=== PATIENT | female | born 1990 | race Caucasian/White ===

== ENCOUNTER → 2019-06-16 | Outpatient (CLI) | payer OTHER ==
--- NOTE | 2019-06-16 15:10 | Diagnostic Imaging Report ---
PROCEDURE: CT abdomen without contrast. TECHNIQUE: Multiple contiguous axial images were obtained through the abdomen without the use of intravenous contrast. Auto Exposure Controls were utilized during the CT exam to meet ALARA standards for radiation dose reduction. INDICATION: Evaluate hernia. COMPARISON: No prior studies are available for comparison. FINDINGS: Lung bases are clear. The liver and gallbladder are unremarkable. No biliary duct dilatation is seen. Pancreas and spleen are unremarkable. No adrenal mass is detected. Kidneys are without calculi or hydronephrosis. Aorta is non-aneurysmal. There is a small fat-containing umbilical hernia. No other abdominal wall hernia is seen. No herniated bowel loops are identified. Bowel loops are normal caliber. There is no obstruction. There is no free fluid. IMPRESSION: Small fat-containing umbilical hernia. Dictated by: Dictated on workstation # [id number]
== END ==
LOC: RAD 14:26
PROVIDERS: ATTEND Registered Nurse
DX: K42.9 Umbilical hernia without obstruction or gangrene (principal)
CPT/HCPCS: 74150

== ENCOUNTER 2020-08-28 15:05 | Emergency (ER) | payer SELFPAY ==
[~2020-08-28] VITALS: Ht 157.5 cm; Wt 136.1 kg
[2020-08-28 15:34] LABS: BASOPHILS # (AUTO) 0.1 10^3/uL (0.0-0.1); BASOPHILS % (AUTO) 1 % (0-10); EOSINOPHILS # (AUTO) 0.6 10^3/uL (0.0-0.3); EOSINOPHILS % (AUTO) 4 % (0-10); HEMATOCRIT 47 % (35-52); HEMOGLOBIN 15.6 g/dL (11.5-16.0); LYMPHOCYTES # (AUTO) 3.2 10^3/uL (1.0-4.0); LYMPHOCYTES % (AUTO) 24 % (12-44); MEAN CORPUSCULAR HEMOGLOBIN 29 pg (25-34); MEAN CORPUSCULAR HGB CONC 33 g/dL (32-36); MEAN CORPUSCULAR VOLUME 87 fL (80-99); MEAN PLATELET VOLUME 11.2 fL (9.0-12.2); MONOCYTES # (AUTO) 0.6 10^3/uL (0.0-1.0); MONOCYTES % (AUTO) 4 % (0-12); NEUTROPHILS % (AUTO) 66 % (42-75); PLATELET COUNT 225 10^3/uL (130-400); WHITE BLOOD COUNT 13.5 10^3/uL (4.3-11.0)
[2020-08-28 15:39] LABS: INR 0.9 (0.8-1.4); PROTHROMBIN TIME PATIENT 12.5 SEC (12.2-14.7)
[2020-08-28] MEDS ORDERED: LIDOCAINE 2% VISCOUS 15 ML UDC PO ONE (15:45)
[2020-08-28] MEDS ORDERED: ANTACID SUSP 30 ML UDC (MYLANTA) PO ONE (15:45)
[2020-08-28 15:50] LABS: ALANINE AMINOTRANSFERASE 38 U/L (0-55); ALBUMIN 3.9 GM/DL (3.2-4.5); ALKALINE PHOSPHATASE 62 U/L (40-136); BILIRUBIN,TOTAL 0.4 MG/DL (0.1-1.0); BUN/CREATININE RATIO 10; CALCIUM 8.7 MG/DL (8.5-10.1); CARBON DIOXIDE 25 MMOL/L (21-32); CHLORIDE 96 MMOL/L (98-107); CREATININE SERUM 0.69 MG/DL (0.60-1.30); GFR ESTIMATED > 60; GLUCOSE 322 MG/DL (70-105); MAGNESIUM 1.6 MG/DL (1.6-2.4); POTASSIUM 4.1 MMOL/L (3.6-5.0); SODIUM 136 MMOL/L (135-145); TOTAL PROTEIN 7.3 GM/DL (6.4-8.2)
--- NOTE | 2020-08-28 16:04 | ED Chest Pain ---
General Chief Complaint: Chest Pain Stated Complaint: CP Nursing Triage Note: PT ARRIVED BY PRIVATE VEHICLE WITH CHIEF COMPLAINT OF CHEST PAIN. PT STATED ONSET WAS 20 MINUTES PRIOR TO ARRIVAL. PT STATED THAT SHE WAS WALKING OUTSIDE AFTER LUNCH TO GET SOME BREEZE. WHEN SHE WENT INSIDE SHE STARTED TO HAVE CHEST PAIN. PT WAS ALERT, ORIENTED X 4 AND AMBULATORY. PT STATED THAT SHE HAS RIGHT SHOULDER PAIN WITH NUMBNESS AND FEELS LIKE "A FAT PERSON" IS SITTING ON HER CHEST. PT HAS HAD 2 C-SECTIONS AND HAS HISTORY OF ASTHMA. VITALS WERE DONE ON ARRIVAL, PT WAS HOOKED TO [employer], EKG, IV START (20 GAUGE LAC) WITH BLOOD DRAW WERE COMPLETED. REPORT WAS GIVEN TO PROVIDER. Nursing Sepsis Screen: No Definite Risk Source: patient Exam Limitations: no limitations History of Present Illness Date Seen by Provider: Aug 28, 2020 Time Seen by Provider: 15:20 Initial Comments If she isTo ER by private vehicle with reports of chest pain. Otherwise healthy she states no. I asked her to elaborate and she states that she has asthma and she also states "I am the status person on the face of the fucking earth". She has no cardiac history. She does not feel this is her asthma. She does have acid reflux. Timing/Duration: changing over time Severity/Quality: moderate Location: central Radiation: no radiation Activities at Onset: none ASA po CHEESE COOK: No NTG SL CHEESE COOK: No Associated Symptoms: shortness of breath Allergies and Home Medications Allergies Coded Allergies: No Known Drug Allergies (Unverified , 08/28/20) Patient Home Medication List Home Medication List Reviewed: Yes Review of Systems Review of Systems Constitutional: see HPI EENTM: No Symptoms Reported Respiratory: No Symptoms Reported Cardiovascular: See HPI, Chest Pain Gastrointestinal: No Symptoms Reported Genitourinary: No Symptoms Reported Musculoskeletal: no symptoms reported Skin: no symptoms reported Psychiatric/Neurological: No Symptoms Reported Endocrine: No Symptoms Reported Past Oqempxr-Hadacl-Wsvoax Hx Patient Social History Alcohol Use: Denies Use Smoking Status: Current Everyday Smoker 2nd Hand Smoke Exposure: Yes Recent Infectious Disease Expo: No Recent Hopitalizations: No Seasonal Allergies Seasonal Allergies: No Past Medical History Surgeries: Yes Section Respiratory: No Cardiac: No Neurological: No Genitourinary: No Gastrointestinal: No Musculoskeletal: No Endocrine: No HEENT: No Cancer: No Psychosocial: No Integumentary: No Physical Exam Vital Signs Vital Signs - First Documented 08/28/20 15:07 Temp 36.6 Pulse 109 Resp 22 B/P (MAP) 167/112 (130) Pulse Ox 93 O2 Delivery Room Air Capillary Refill : Less Than 3 Seconds Height, Weight, BMI Height: '" Weight: lbs. oz. kg; 54.00 BMI Method: General Appearance: No Apparent Distress, WD/WN, Obese, Other (Flat affect) Neck: Full Range of Motion, Normal Inspection Respiratory: Lungs Clear, Normal Breath Sounds, No Accessory Muscle Use, No Respiratory Distress Cardiovascular: Regular Rate, Rhythm, Normal Peripheral Pulses Gastrointestinal: Normal Bowel Sounds, Non Tender, Soft Extremity: Normal Capillary Refill, Normal Inspection Neurologic/Psychiatric: Alert, Oriented x3 Skin: Normal Color, Warm/Dry Progress/Results/Core Measures Results/Orders Lab Results Laboratory Tests Test 08/28/20 15:17 Range/Units White Blood Count 13.5 H 4.3-11.0 10^3/uL Red Blood Count 5.45 H 3.80-5.11 10^6/uL Hemoglobin 15.6 11.5-16.0 g/dL Hematocrit 47 35-52 % Mean Corpuscular Volume 87 80-99 fL Mean Corpuscular Hemoglobin 29 25-34 pg Mean Corpuscular Hemoglobin Concent 33 32-36 g/dL Red Cell Distribution Width 13.9 10.0-14.5 % Platelet Count 225 130-400 10^3/uL Mean Platelet Volume 11.2 9.0-12.2 fL Immature Granulocyte % (Auto) 1 % Neutrophils (%) (Auto) 66 42-75 % Lymphocytes (%) (Auto) 24 12-44 % Monocytes (%) (Auto) 4 0-12 % Eosinophils (%) (Auto) 4 0-10 % Basophils (%) (Auto) 1 0-10 % Neutrophils # (Auto) 9.0 H 1.8-7.8 10^3/uL Lymphocytes # (Auto) 3.2 1.0-4.0 10^3/uL Monocytes # (Auto) 0.6 0.0-1.0 10^3/uL Eosinophils # (Auto) 0.6 H 0.0-0.3 10^3/uL Basophils # (Auto) 0.1 0.0-0.1 10^3/uL Immature Granulocyte # (Auto) 0.2 H 0.0-0.1 10^3/uL Prothrombin Time 12.5 12.2-14.7 SEC INR Comment 0.9 0.8-1.4 Activated Partial Thromboplast Time 26 24-35 SEC D-Dimer 0.30 0.00-0.49 UG/ML Sodium Level 136 135-145 MMOL/L Potassium Level 4.1 3.6-5.0 MMOL/L Chloride Level 96 L 98-107 MMOL/L Carbon Dioxide Level 25 21-32 MMOL/L Anion Gap 15 H 5-14 MMOL/L Blood Urea Nitrogen 7 7-18 MG/DL Creatinine 0.69 0.60-1.30 MG/DL Estimat Glomerular Filtration Rate > 60 BUN/Creatinine Ratio 10 Glucose Level 322 H 70-105 MG/DL Calcium Level 8.7 8.5-10.1 MG/DL Corrected Calcium 8.8 8.5-10.1 MG/DL Magnesium Level 1.6 1.6-2.4 MG/DL Total Bilirubin 0.4 0.1-1.0 MG/DL Aspartate Amino Transf (AST/SGOT) 26 5-34 U/L Alanine Aminotransferase (ALT/SGPT) 38 0-55 U/L Alkaline Phosphatase 62 40-136 U/L Myoglobin 17.8 10.0-92.0 NG/ML Troponin I 0.028 <0.028 NG/ML B-Type Natriuretic Peptide < 10.0 <100.0 PG/ML Total Protein 7.3 6.4-8.2 GM/DL Albumin 3.9 3.2-4.5 GM/DL Serum Test, Qualitative NEGATIVE NEGATIVE My Orders Orders - KAYLA FLORES APRN Cbc With Automated Diff (08/28/20 15:21) Magnesium (08/28/20 15:21) Chest 1 View, Ap/Pa Only (08/28/20 15:21) Ekg Tracing (08/28/20 15:21) Comprehensive Metabolic Panel (08/28/20 15:21) Myoglobin Serum (08/28/20 15:21) Protime With Inr (08/28/20 15:21) Partial Thromboplastin Time (08/28/20 15:21) O2 (08/28/20 15:21) Monitor-Rhythm Ecg Trace Only (08/28/20 15:21) Lipid Panel (08/29/20 06:00) Ed Iv/Invasive Line Start (08/28/20 15:21) BNP (08/28/20 15:21) Fibrin Degradation Products (08/28/20 15:21) Troponin I (08/28/20 15:21) Hcg,Qualitative Serum (08/28/20 15:31) Antacid Suspension (Mylanta Suspension (08/28/20 15:45) Lidocaine 2% Viscous 15 Ml (Xylocaine Vi (08/28/20 15:45) Medications Given in ED Current Medications Medications Dose Ordered Sig/Beronica Route Start Time Stop Time Status Last Admin Dose Admin Al Hydrox/Mg Hydrox/Simethicone 30 ml ONCE ONCE PO 08/28/20 15:45 08/28/20 15:46 DC 08/28/20 15:39 30 ML Lidocaine HCl 10 ml ONCE ONCE PO 08/28/20 15:45 08/28/20 15:46 DC 08/28/20 15:39 10 ML Vital Signs/I&O 08/28/20 08/28/20 15:07 15:22 Temp 36.6 Pulse 109 Resp 22 B/P (MAP) 167/112 (130) Pulse Ox 93 O2 Delivery Room Air Room Air Blood Pressure Mean: 130 Departure Communication (Admissions) 1688-pain is completely resolved after GI cocktail. We will discharged home. She has been rather flat throughout her stay as far as affect goes. Combined with her comments about her weight, she may benefit from some additional antidepressants. Wellbutrin might be a good choice for her. I did discuss with her and potential for weight loss as a side effect and she states "well rebekah, why am I on that already?". She would like to try a prescription for this. Impression Primary Impression: Chest pain Disposition: HOME, SELF-CARE Condition: Stable Departure-Patient Inst. Decision time for Depature: 16:33 Referrals: NO,LOCAL PHYSICIAN (PCP/Family) Primary Care Physician Patient Instructions: Acid Reflux and GERD in Adults (DC) Add. Discharge Instructions: 1. Return to ER for any concerns. Start the new medication as directed. Follow-up with your primary healthcare provider this week for recheck. All discharge instructions reviewed with patient and/or family. Voiced understanding. Scripts Bupropion HCl (Wellbutrin Xl) 150 Mg Tab.er.24h 150 MG PO DAILY for Smoking Cessation, #30 TAB Prov: KAYLA FLORES APRN 08/28/20 KAYLA FLORES APRN Aug 28, 2020 16:04
[2020-08-28] MEDS ORDERED: BUPR-42 PO (16:37)
[2020-08-28 16:46] VITALS: BP 170/108
--- NOTE | 2020-08-28 16:47 | Diagnostic Imaging Report ---
EXAMINATION: Chest 1 view. HISTORY: Chest pain. COMPARISON: None available. FINDINGS: The lungs are clear without edema or pneumonia. No pleural effusion or pneumothorax. Heart size is normal. IMPRESSION: Clear lungs. Dictated by: Dictated on workstation # [id number]
== END 2020-08-28 16:46 | disposition home or self-care (01) ==
LOC: ER 15:05
DX: R07.9 Chest pain, unspecified (principal); J45.909 Unspecified asthma, uncomplicated; Z77.22 Contact with and (suspected) exposure to environmental tobacco smoke (acute) (chronic); Z32.02 Encounter for pregnancy test, result negative
CPT/HCPCS: 36415; 71045; 80053; 83735; 83874; 83880; 84484; 84703; 85025; 85379; 85610; 85730; 93005; 93041

== ENCOUNTER 2020-08-30 15:00 | Emergency (ER) | payer SELFPAY ==
[~2020-08-30] VITALS: Ht 157.5 cm; Wt 144.2 kg
[~2020-08-30 15:00] MED LIST: BUPR-42 PO
[2020-08-30] MEDS ORDERED: PROMETHAZINE INJ 25 MG/ML (PHENERGAN) AMP IVP ONE ×2 (15:15)
[2020-08-30] MEDS ORDERED: NS IV 1000 ML 1,000 ML IV SCH ×2 (15:15)
--- NOTE | 2020-08-30 15:17 | ED General ---
General Chief Complaint: General Problems/Pain Stated Complaint: DIZZINESS Nursing Triage Note: PT BROUGHT IN BY [facility] FROM [facility] WITH COMPLAINT OF DIZZINESS AND NAUSEA. Nursing Sepsis Screen: No Definite Risk Source of Information: Patient Exam Limitations: No Limitations History of Present Illness Date Seen by Provider: Aug 30, 2020 Time Seen by Provider: 15:02 Initial Comments To ER by EMS from [facility] with reports of dizziness and nausea without vomiting. I saw her a few days ago for chest pain, she was quite depressed and upset about her weight. I gave her a prescription for Wellbutrin but she states she has not yet filled that. She does have a history of dizziness. No headaches. Timing/Duration: 1-2 Days Severity: Moderate Associated Systoms: Denies Symptoms Allergies and Home Medications Allergies Coded Allergies: No Known Drug Allergies (Unverified , 08/28/20) Home Medications Bupropion HCl 150 Mg Tab.er.24h, 150 MG PO DAILY Prescribed by: KAYLA FLORES on 08/28/20 [id number] Patient Home Medication List Home Medication List Reviewed: Yes Review of Systems Review of Systems Constitutional: see HPI; No chills; dizziness; No fever EENTM: see HPI Respiratory: no symptoms reported Cardiovascular: no symptoms reported Gastrointestinal: nausea Genitourinary: no symptoms reported Musculoskeletal: no symptoms reported Skin: no symptoms reported Psychiatric/Neurological: No Symptoms Reported Hematologic/Lymphatic: No Symptoms Reported Past Zdvxbgy-Ultfph-Vjmgoz Hx Patient Social History Alcohol Use: Denies Use Smoking Status: Current Everyday Smoker 2nd Hand Smoke Exposure: Yes Recent Infectious Disease Expo: No Recent Hopitalizations: No Immunizations Up To Date Tetanus Booster (TDap): Unknown PED Vaccines UTD: Yes Seasonal Allergies Seasonal Allergies: No Past Medical History Surgeries: Yes Section Respiratory: No Cardiac: No Neurological: No Genitourinary: No Gastrointestinal: No Musculoskeletal: No Endocrine: Yes Diabetes, Non-Insulin dep HEENT: No Cancer: No Psychosocial: No Integumentary: No Physical Exam Vital Signs Vital Signs - First Documented 08/30/20 15:00 Temp 36.0 Pulse 104 Resp 16 B/P (MAP) 118/84 (95) Pulse Ox 95 O2 Delivery Room Air Capillary Refill : Less Than 3 Seconds Height, Weight, BMI Height: '" Weight: lbs. oz. kg; 58.00 BMI Method: General Appearance: No Apparent Distress, WD/WN, Obese, Other (Keeps her eyes closed, states that the nausea intensifies when she opens her eyes. Over the already know I did not) Eyes: Bilateral Eye Normal Inspection, Bilateral Eye PERRL, Bilateral Eye EOMI, Bilateral Eye Other HEENT: PERRL/EOMI, TMs Normal Neck: Full Range of Motion, Normal Inspection Respiratory: No Accessory Muscle Use, No Respiratory Distress Cardiovascular: Regular Rate, Rhythm, Normal Peripheral Pulses Gastrointestinal: Normal Bowel Sounds, Non Tender, Soft Extremity: Normal Capillary Refill, Normal Inspection Neurologic/Psychiatric: Alert, Oriented x3 Skin: Normal Color, Warm/Dry Progress/Results/Core Measures Suspected Sepsis Recent Fever Within 48 Hours: No Infection Criteria Present: None New/Unexplained Altered Menta: No Sepsis Screen: No Definite Risk SIRS Temperature: Pulse: 104 Respiratory Rate: 16 Laboratory Tests 08/30/20 15:20: White Blood Count 13.5H Blood Pressure 118 /84 Mean: 95 Laboratory Tests 08/30/20 15:20: Creatinine 0.66, Platelet Count 257, Total Bilirubin 0.6 Results/Orders Lab Results Laboratory Tests Test 08/30/20 15:20 08/30/20 17:11 Range/Units White Blood Count 13.5 H 4.3-11.0 10^3/uL Red Blood Count 5.90 H 3.80-5.11 10^6/uL Hemoglobin 16.8 H 11.5-16.0 g/dL Hematocrit 52 35-52 % Mean Corpuscular Volume 88 80-99 fL Mean Corpuscular Hemoglobin 29 25-34 pg Mean Corpuscular Hemoglobin Concent 32 32-36 g/dL Red Cell Distribution Width 13.8 10.0-14.5 % Platelet Count 257 130-400 10^3/uL Mean Platelet Volume 11.1 9.0-12.2 fL Immature Granulocyte % (Auto) 1 % Neutrophils (%) (Auto) 72 42-75 % Lymphocytes (%) (Auto) 19 12-44 % Monocytes (%) (Auto) 4 0-12 % Eosinophils (%) (Auto) 3 0-10 % Basophils (%) (Auto) 1 0-10 % Neutrophils # (Auto) 9.7 H 1.8-7.8 10^3/uL Lymphocytes # (Auto) 2.6 1.0-4.0 10^3/uL Monocytes # (Auto) 0.6 0.0-1.0 10^3/uL Eosinophils # (Auto) 0.4 H 0.0-0.3 10^3/uL Basophils # (Auto) 0.1 0.0-0.1 10^3/uL Immature Granulocyte # (Auto) 0.2 H 0.0-0.1 10^3/uL Sodium Level 135 135-145 MMOL/L Potassium Level 4.4 3.6-5.0 MMOL/L Chloride Level 96 L 98-107 MMOL/L Carbon Dioxide Level 27 21-32 MMOL/L Anion Gap 12 5-14 MMOL/L Blood Urea Nitrogen 11 7-18 MG/DL Creatinine 0.66 0.60-1.30 MG/DL Estimat Glomerular Filtration Rate > 60 BUN/Creatinine Ratio 17 Glucose Level 195 H 70-105 MG/DL Calcium Level 9.1 8.5-10.1 MG/DL Corrected Calcium 9.1 8.5-10.1 MG/DL Total Bilirubin 0.6 0.1-1.0 MG/DL Aspartate Amino Transf (AST/SGOT) 25 5-34 U/L Alanine Aminotransferase (ALT/SGPT) 35 0-55 U/L Alkaline Phosphatase 51 40-136 U/L Total Protein 7.5 6.4-8.2 GM/DL Albumin 4.0 3.2-4.5 GM/DL Serum Test, Qualitative NEGATIVE NEGATIVE Urine Color YELLOW Urine Clarity CLEAR Urine pH 6.0 5-9 Urine Specific [place] >=1.030 1.016-1.022 Urine Protein 3+ H NEGATIVE Urine Glucose (UA) NEGATIVE NEGATIVE Urine Ketones NEGATIVE NEGATIVE Urine Nitrite NEGATIVE NEGATIVE Urine Bilirubin NEGATIVE NEGATIVE Urine Urobilinogen 0.2 < = 1.0 MG/DL Urine Leukocyte Esterase NEGATIVE NEGATIVE Urine RBC (Auto) 1+ H NEGATIVE Urine RBC 2-5 H /HPF Urine WBC 2-5 /HPF Urine Squamous Epithelial Cells 25-50 H /HPF Urine Crystals NONE /LPF Urine Bacteria MODERATE H /HPF Urine Casts NONE /LPF Urine Mucus NEGATIVE /LPF Urine Trichomonas LARGE H /HPF Urine Culture Indicated NO My Orders Orders - KAYLA FLORES APRN Promethazine Injection (Phenergan Injec (08/30/20 15:15) Ns Iv 1000 Ml (Sodium Chloride 0.9%) (08/30/20 15:15) Cbc With Automated Diff (08/30/20 15:05) Hcg,Qualitative Serum (08/30/20 15:05) Comprehensive Metabolic Panel (08/30/20 15:05) Ed Iv/Invasive Line Start (08/30/20 15:05) Ns Iv 1000 Ml (Sodium Chloride 0.9%) (08/30/20 15:15) Promethazine Injection (Phenergan Injec (08/30/20 15:15) Ua Culture If Indicated (08/30/20 15:14) Medications Given in ED Current Medications Medications Dose Ordered Sig/Beronica Route Start Time Stop Time Status Last Admin Dose Admin Promethazine HCl 25 mg ONCE ONCE IVP 08/30/20 15:15 08/30/20 15:16 DC 08/30/20 15:23 25 MG Vital Signs/I&O 08/30/20 15:00 Temp 36.0 Pulse 104 Resp 16 B/P (MAP) 118/84 (95) Pulse Ox 95 O2 Delivery Room Air Capillary Refill : Less Than 3 Seconds Blood Pressure Mean: 95 Departure Impression Primary Impression: Dizziness Additional Impression: Trichomoniasis Disposition: 01 HOME, SELF-CARE Condition: Stable Departure-Patient Inst. Decision time for Depature: 17:51 Referrals: NO,LOCAL PHYSICIAN (PCP/Family) Primary Care Physician Patient Instructions: Trichomoniasis Scripts Metronidazole (Flagyl) 500 Mg Tablet 2000 MG PO ONCE, #4 TAB Prov: KAYLA FLORES APRN 08/30/20 KAYLA FLORES APRN Aug 30, 2020 15:17
[2020-08-30 15:33] LABS: BASOPHILS # (AUTO) 0.1 10^3/uL (0.0-0.1); BASOPHILS % (AUTO) 1 % (0-10); EOSINOPHILS # (AUTO) 0.4 10^3/uL (0.0-0.3); EOSINOPHILS % (AUTO) 3 % (0-10); HEMATOCRIT 52 % (35-52); HEMOGLOBIN 16.8 g/dL (11.5-16.0); LYMPHOCYTES # (AUTO) 2.6 10^3/uL (1.0-4.0); LYMPHOCYTES % (AUTO) 19 % (12-44); MEAN CORPUSCULAR HEMOGLOBIN 29 pg (25-34); MEAN CORPUSCULAR HGB CONC 32 g/dL (32-36); MEAN CORPUSCULAR VOLUME 88 fL (80-99); MEAN PLATELET VOLUME 11.1 fL (9.0-12.2); MONOCYTES # (AUTO) 0.6 10^3/uL (0.0-1.0); MONOCYTES % (AUTO) 4 % (0-12); NEUTROPHILS # (AUTO) 9.7 10^3/uL (1.8-7.8); NEUTROPHILS % (AUTO) 72 % (42-75); PLATELET COUNT 257 10^3/uL (130-400); WHITE BLOOD COUNT 13.5 10^3/uL (4.3-11.0)
[2020-08-30 15:45] LABS: CHLORIDE 96 MMOL/L (98-107); POTASSIUM 4.4 MMOL/L (3.6-5.0); SODIUM 135 MMOL/L (135-145)
[2020-08-30 15:46] LABS: CALCIUM 9.1 MG/DL (8.5-10.1)
[2020-08-30 15:48] LABS: GLUCOSE 195 MG/DL (70-105); TOTAL PROTEIN 7.5 GM/DL (6.4-8.2)
[2020-08-30 15:49] LABS: CARBON DIOXIDE 27 MMOL/L (21-32)
[2020-08-30 15:50] LABS: BILIRUBIN,TOTAL 0.6 MG/DL (0.1-1.0)
[2020-08-30 15:51] LABS: ALKALINE PHOSPHATASE 51 U/L (40-136); CREATININE SERUM 0.66 MG/DL (0.60-1.30); GFR ESTIMATED > 60
[2020-08-30 15:52] LABS: BUN/CREATININE RATIO 17
[2020-08-30 15:54] LABS: ALANINE AMINOTRANSFERASE 35 U/L (0-55)
[2020-08-30 17:17] LABS: BILIRUBIN,URINE NEGATIVE (NEGATIVE); CLARITY,URINE CLEAR; COLOR,URINE YELLOW; GLUCOSE, URINE (UA) NEGATIVE (NEGATIVE); KETONES,URINE NEGATIVE (NEGATIVE); LEUKOCYTE ESTERASE ,URINE NEGATIVE (NEGATIVE); NITRITE,URINE NEGATIVE (NEGATIVE); PROTEIN,URINE 3+ (NEGATIVE)
[2020-08-30 17:46] LABS: BACTERIA,URINE MODERATE /HPF; SQUAMOUS EPITHELIAL CELL,UR 25-50 /HPF
[2020-08-30 17:47] LABS: TRICHOMONAS,URINE LARGE /HPF
[2020-08-30] MEDS ORDERED: METR500T PO (17:52)
[2020-08-30] MEDS ORDERED: metroNIDAZOLE 500 MG (FLAGYL) TAB ONE (17:55)
[2020-08-30 18:07] VITALS: BP 122/86
[2020-08-30] MEDS ORDERED: metroNIDAZOLE 500 MG (FLAGYL) TAB PO ONE ×2 (18:15→21:00)
== END 2020-08-30 18:07 | disposition home or self-care (01) ==
LOC: EDUNIT# 15:00 → ER 15:02
DX: R42 Dizziness and giddiness (principal); A59.9 Trichomoniasis, unspecified; E66.9 Obesity, unspecified; E11.9 Type 2 diabetes mellitus without complications; F17.200 Nicotine dependence, unspecified, uncomplicated; Z68.43 Body mass index [BMI] 50.0-59.9, adult
CPT/HCPCS: 36415; 80053; 81000; 84703; 85025